=== PATIENT | male | born 1945 | race Caucasian/White ===

== ENCOUNTER 2019-01-29 14:22 | Emergency (ER) | payer MEDICARE, OTHER ==
[2019-01-29 14:32] VITALS: BP 123/78
--- NOTE | 2019-01-29 15:39 | ED Physician Documentation ---
History of Present Illness - Stated complaint Stated Complaint: BEE STINGS - Chief complaint Chief Complaint: General - History obtained from History obtained from: Patient - History of Present Illness Timing: Prior to arrival - Additonal information Additional information: Patient is a 73-year-old male presenting with multiple bee stings that occurred several hours ago in his yard. Patient denies known allergy to bees. Patient denies any lip or mouth swelling, throat closing sensation, difficulty breathing. Patient reports he did have some redness, swelling, and hives areas of stings which have all improved. No itchiness. No other improving or worsening factors noted. Review of Systems Skin: reports: Lesions, Bite / sting Musculoskeletal: denies: Extremity pain Neurologic: denies: Focal weakness, Numbness PD PAST MEDICAL HISTORY - Past Medical History Past Medical History: Yes Cardiovascular: Hypertension Respiratory: Sleep apnea Endocrine/Autoimmune: None GI: None : None HEENT: None Psych: None Derm: None - Past Surgical History Past Surgical History: No General: Colonoscopy - Present Medications Home Medications: Ambulatory Orders Medication Instructions Recorded Confirmed Chlorthalidone 0 mg PO DAILY 06/11/13 01/08/16 Finasteride [Proscar] 1.5 mg PO DAILY 06/11/13 01/08/16 Aspirin [Adult Low Dose Aspirin EC] 81 mg PO DAILY 01/07/16 01/08/16 - Allergies Allergies/Adverse Reactions: Allergies Allergy/AdvReac Type Severity Reaction Status Date / Time fenethylline [Fenethylline] Allergy hive Verified 06/11/13 10:01 oxytetracycline Allergy Hives Verified 06/11/13 10:01 [From Terramycin] oxytetracycline HCl * Allergy Hives Verified 06/11/13 10:01 [From Terramycin] Penicillins Allergy Hives Verified 06/11/13 10:01 Sulfa (Sulfonamide Allergy Hives Verified 06/11/13 10:01 Antibiotics) - Social History Does the pt smoke?: No Smoking Status: Never smoker Does the pt drink ETOH?: Yes Does the pt have substance abuse?: No PD ED PE NORMAL - Vitals Vital signs reviewed: Yes - General General: Alert and oriented X 3, No acute distress, Well developed/nourished - HEENT HEENT: Atraumatic, Moist mucous membranes, Pharynx benign, Other (No lip or intraoral swelling noted) - Neck Neck: Supple, no meningeal sign - Cardiac Cardiac: Strong equal pulses - Respiratory Respiratory: No respiratory distress - Derm Derm: Other (Small area of erythema, swelling, and 5 to right ventral forearm and left neck at sites of bee sting without other complication noted) - Extremities Extremities: No deformity, No tenderness to palpate, No edema - Neuro Neuro: Alert and oriented X 3, No motor deficit, No sensory deficit - Psych Psych: Normal mood, Normal affect Results - Vitals Vitals: Vital Signs - 24 hr 01/29/19 14:30 Temperature 36.6 C Heart Rate 101 H Respiratory 16 Rate Blood Pressure 123/78 O2 Saturation 96 Oxygen O2 Source Room air PD MEDICAL DECISION MAKING - ED course Complexity details: considered differential, d/w patient ED course: Patient presenting with several localized bee stings. No allergic reaction, respiratory distress, or anaphylaxis. Feel that his symptoms are just reactionary to the sting itself. Feel these will dissipate with time and other supportive cares. Do not feel patient requires interventions at this time. Discussed appropriate supportive cares at home, return precautions, and follow- up with patient. Patient is amenable to discharge plan. Departure - Departure Disposition: 01 Home, Self Care Clinical Impression: Bee sting Qualifiers: Encounter type: initial encounter Injury intent: accidental or unintentional Qualified Code(s): T63.441A - Toxic effect of venom of bees, accidental (unintentional), initial encounter Instructions: ED Bite Insect Follow-Up: your,doctor [Other] - Within 3 Days Comments: Recommend supportive care such as elevation, ice application, ibuprofen/Tylenol as needed. If itching, also recommend Benadryl. Please follow-up with primary care physician in next 2 to 3 days and return to ED sooner if experience worsening symptoms or have other concerns.
== END 2019-01-29 15:54 | disposition home or self-care (01) ==
LOC: ED 14:22
DX: T63.441A Toxic effect of venom of bees, accidental (unintentional), initial encounter (principal); X58.XXXA Exposure to other specified factors, initial encounter; Y92.007 Garden or yard of unspecified non-institutional (private) residence as the place of occurrence of the external cause; I10 Essential (primary) hypertension; Z79.82 Long term (current) use of aspirin
CPT/HCPCS: 99282

== ENCOUNTER 2020-09-13 13:35 | Outpatient (CLI) | payer MEDICARE, OTHER ==
[2020-09-13 20:12] LABS: BILIRUBIN,URINE NEGATIVE (NEGATIVE); GLUCOSE, URINE (UA) NEGATIVE (NEGATIVE); KETONES,URINE (UA) NEGATIVE (NEGATIVE); LEUKOCYTE ESTERASE, URINE NEGATIVE (NEGATIVE); NITRITE,URINE NEGATIVE (NEGATIVE); OCCULT BLOOD,URINE NEGATIVE (NEGATIVE); PH,URINE 6.5 PH (5.0-7.5); PROTEIN,URINE NEGATIVE (NEGATIVE); UROBILINOGEN,URINE 0.2 (NORMAL) E.U./dL (NORMAL)
[2020-09-13 20:15] LABS: CLARITY,URINE CLEAR (CLEAR)
[2020-09-13 20:21] LABS: BACTERIA,URINE None Seen /HPF (None Seen); CASTS, URINE 3-5 Hyaline Casts /LPF; RBC,URINE None Seen /HPF (0-5); SQUAMOUS EPITHELIAL CELL,UR RARE Squamous (<= Few); WBC,URINE 0-3 /HPF (0-3)
[2020-09-13 20:27] LABS: ALBUMIN 4.9 g/dL (3.2-5.5); ALBUMIN/GLOBULIN RATIO 1.8 (1.0-2.2); BILIRUBIN,TOTAL 0.5 mg/dL (0.2-1.0); CALCIUM 9.9 mg/dL (8.5-10.3); POTASSIUM 3.5 mmol/L (3.5-5.0); TOTAL PROTEIN 7.6 g/dL (6.7-8.2)
--- OUTSIDE RECORDS SUMMARY | 2020-09-24 19:59 | EXTERNAL MEDICAL SUMMARY RPT | Continuity of Care Document ---
:1945 Demographics Phone Unavailable Preferred Language Unknown Marital Status Unknown Mormonism Affiliation Unknown Race Unknown Ethnic Group Unknown Author Organization [facility] Address [address] [phone] Phone Care Team Providers Name Role Phone Joey, Provider Unavailable Unavailable Registrar, Chris Mckoy, Patient Unavailable Unavail able Problems date description facility [id number] Benign prostatic hyperplasia without lo wer urinary tract All symptoms 20200826 Benign prostatic hyperplasia All 20200826 COMPREHENSIVE METABOLIC PANEL All 20200826 Encounter for screening for malignant n eoplasm of prostate All 20200826 Hypertrophy (benign) of prostate withou t urinary obstruction All and other lower urinary tract (LUTS) 20200826 Nonspecific abnormal results of functio n study of kidney All 20200826 Screening for malignant neoplasm of pro state All 20200826 Screening for malignant neoplasms of pr ostate All 20200826 Urinalysis with Microscopic Exam, Cultu re in Indicated All 20200826 Alcohol intake All 20200826 Alcohol use All 20200826 Details of drug misuse behavior All 20200826 Exercise All 20200826 Feeling down, depressed, or hopeless? All 20200826 Health-related behavior All 20200826 How many standard drinks containing alc ohol do you have on a All typical day? [id number] How often do you have 6 or more drinks on 1 occasion? All 20200826 Little interest or pleasure in doing th ings? All [id number] Never smoker All 20200826 Other specified abnormal findings of bl ood chemistry All 20200826 PSA, SCREENING All 20200826 Patient Health Questionnaire 2 item (PH Q2) total score All 20200826 Serum creatinine raised All 20200826 Tobacco smoking status NHIS All [id number] Tobacco use and exposure All [id number] Total score? All Medications date description facility [id number] ATORVASTATIN CALCIUM All 20200826 [facility] All 20200826 LISIN[facility] All 20200826 [facility] All [id number] [facility] All [id number] [facility] All 20200826 LISINOPRIL All 20200826 ATORVASTATIN CALCIUM All [id number] ATORVASTATIN [facility] All [id number] [facility] All 20200826 LISINOPRIL All 20200826 [facility]ORTHALID[facility] All 20200826 [facility] All [id number] [facility] All [id number] LISINOPRIL All 20200826 ATORVASTATIN CALCIUM All Vital Signs date measurement value source 20200826 BMI 27.06 kg/m2 20200826 BP_diastolic 88 mm[Hg] 20200826 BP_diastolic 92 mm[Hg] 20200826 BP_systolic 149 mm[Hg] 20200826 BP_systolic 151 mm[Hg] 20200826 heart_rate 108 /min 20200826 height_metric 184.78 cm 20200826 height_standard 72.75 in 20200826 respiration_rate 16 /min 20200826 temperature_metric 36.17 C 20200826 temperature_standard 97.1 F 20200826 weight_metric 92.08 kg 20200826 weight_standard 203 lb Social History date description facility [id number]
== END 2020-09-13 13:36 | disposition home or self-care (01) ==
LOC: LAB.S 13:35
PROVIDERS: ATTEND Internal Medicine
DX: R79.89 Other specified abnormal findings of blood chemistry (principal); N40.0 Benign prostatic hyperplasia without lower urinary tract symptoms; Z12.5 Encounter for screening for malignant neoplasm of prostate
CPT/HCPCS: 36415; 80053; 81001; G0103; 84153; 87086

== ENCOUNTER 2021-02-10 16:43 | Emergency (ER) | payer MEDICARE, OTHER ==
[2021-02-10] MEDS ORDERED: diltiaZEM INJ 5 MG/ML VIAL IVP STA ×2 (17:16→18:03)
--- NOTE | 2021-02-10 17:18 | ED Physician Documentation ---
PD HPI CHEST PAIN - Stated complaint Stated Complaint: RAPID HR - Chief complaint Chief Complaint: Cardiac - History obtained from History obtained from: Patient - Additional information Additional information: Generally healthy 75-year-old gentleman developed rapid irregular palpitations about an hour ago while at rest. There is no associated chest pain, lightheadedness or trouble breathing. He has had similar fleeting episodes before prior work-up. Review of Systems Ten Systems: 10 systems reviewed and negative Constitutional: denies: Fever, Chills, Fatigue Cardiac: reports: Palpitations. denies: Chest pain / pressure Respiratory: denies: Dyspnea, Cough PD PAST MEDICAL HISTORY - Past Medical History Cardiovascular: Hypertension Respiratory: Sleep apnea Endocrine/Autoimmune: None GI: None : None HEENT: None Psych: None Derm: None - Past Surgical History Past Surgical History: No General: Colonoscopy - Present Medications Home Medications: Ambulatory Orders Medication Instructions Recorded Confirmed Chlorthalidone 1 tab PO DAILY 06/11/13 02/10/21 Finasteride [Proscar] 1.5 mg PO DAILY 06/11/13 01/08/16 Aspirin [Adult Low Dose Aspirin EC] 81 mg PO DAILY 01/07/16 02/10/21 Atorvastatin Calcium 1 tab PO DAILY 02/10/21 02/10/21 Lisinopril [Zestril] 1 tab PO DAILY 02/10/21 02/10/21 Metoprolol Tartrate [Lopressor] 25 mg PO Q6H PRN #30 tablet 02/10/21 - Allergies Allergies/Adverse Reactions: Allergies Allergy/AdvReac Type Severity Reaction Status Date / Time fenethylline [Fenethylline] Allergy hive Verified 02/10/21 17:04 oxytetracycline Allergy Hives Verified 02/10/21 17:04 [From Terramycin] oxytetracycline HCl * Allergy Hives Verified 02/10/21 17:04 [From Terramycin] Penicillins Allergy Hives Verified 02/10/21 17:04 Sulfa (Sulfonamide Allergy Hives Verified 02/10/21 17:04 Antibiotics) - Social History Does the pt smoke?: No Smoking Status: Never smoker Does the pt drink ETOH?: Yes Does the pt have substance abuse?: No PD ED PE NORMAL - Vitals Vital signs reviewed: Yes - General General: Alert and oriented X 3, No acute distress - HEENT HEENT: PERRL, EOMI - Neck Neck: Supple, no meningeal sign, No bony TTP - Cardiac Cardiac: Other (Rapid, generally regular but with some PACs on the monitors) - Respiratory Respiratory: No respiratory distress, Clear bilaterally - Abdomen Abdomen: Non tender - Derm Derm: Normal color, Warm and dry - Extremities Extremities: No edema, No calf tenderness / cord - Neuro Neuro: Alert and oriented X 3, Normal speech Results - Vitals Vitals: Vital Signs - 24 hr 02/10/21 02/10/21 02/10/21 16:48 17:07 17:39 Temperature 36.3 C L Heart Rate 134 H 124 H 121 H Respiratory 16 18 10 L Rate Blood Pressure 166/97 H 162/94 H 154/80 H O2 Saturation 98 97 02/10/21 02/10/21 02/10/21 18:11 18:24 18:45 Temperature Heart Rate 123 H 115 H 119 H Respiratory 9 L 13 13 Rate Blood Pressure 171/96 H 171/96 H 166/93 H O2 Saturation 96 95 96 02/10/21 19:00 Temperature Heart Rate 122 H Respiratory 13 Rate Blood Pressure 161/95 H O2 Saturation 100 Oxygen O2 Source Room air - EKG (time done) 1650 Rate: Rate (enter#) (122) Rhythm: Other (He is tachycardic, there is some irregularity. The computer reads it is sinus tach, it is a little hard to tell.) QRS: Normal Ischemia: Non specific changes 1915 Rate: Rate (enter#) (95) Rhythm: NSR [place]: Normal Intervals: Prolonged [place] QRS: Normal Ischemia: Normal ST segments - Labs Labs: Laboratory Tests 02/10/21 02/10/21 02/10/21 16:57 16:57 16:57 WBC 8.3 RBC 5.05 Hgb 15.3 Hct 44.9 MCV 88.9 MCH 30.3 MCHC 34.1 RDW 13.7 Plt Count 175 MPV 9.7 Neut # (Auto) 5.7 Lymph # (Auto) 1.9 [place] # (Auto) 0.6 Eos # (Auto) 0.1 Baso # (Auto) 0.1 Absolute Nucleated RBC 0.00 Nucleated RBC % 0.0 Sodium 140 Potassium 3.1 L Chloride 101 Carbon Dioxide 25 Anion Gap 14.0 H BUN 21 H Creatinine 1.1 Estimated GFR (MDRD) 65 L Glucose 131 H Calcium 9.7 Total Bilirubin 0.6 AST 31 ALT 53 Alkaline Phosphatase 60 Troponin I High Sens 8.4 Total Protein 7.6 Albumin 4.7 Globulin 2.9 Albumin/Globulin Ratio 1.6 Lipase 40 TSH 02/10/21 16:57 WBC RBC Hgb Hct MCV MCH MCHC RDW Plt Count MPV Neut # (Auto) Lymph # (Auto) [place] # (Auto) Eos # (Auto) Baso # (Auto) Absolute Nucleated RBC Nucleated RBC % Sodium Potassium Chloride Carbon Dioxide Anion Gap BUN Creatinine Estimated GFR (MDRD) Glucose Calcium Total Bilirubin AST ALT Alkaline Phosphatase Troponin I High Sens Total Protein Albumin Globulin Albumin/Globulin Ratio Lipase TSH 2.95 PD MEDICAL DECISION MAKING - ED course ED course: 75-year-old gentleman presents in a hard to discern discern SVT. 2 small doses of diltiazem were given without conversion. He was given some IV potassium noting that his potassium levels 3.1. After a small dose of metoprolol IV converted to normal sinus rhythm and was asymptomatic. No evidence of ischemic heart disease. We discussed triggers for this, he does not eat much in the way of fruits and vegetables so has a generally low potassium diet and a very high caffeine diet drinking copious amounts of coffee. We discussed this both decreasing caffeine and increasing whole grains and fruits and vegetables. Departure - Departure Disposition: 01 Home, Self Care Clinical Impression: SVT (supraventricular tachycardia) Condition: Good Record reviewed to determine appropriate education?: Yes Instructions: ED Tachycardia Pat PSVT Follow-Up: Lg De Guzman MD [Primary Care Provider] - Prescriptions: Metoprolol Tartrate [Lopressor] 25 mg PO Q6H PRN #30 tablet PRN Reason: Tachycardia Comments: You are found today to be in a supraventricular tachycardia. This is generally fairly benign. You converted with metoprolol which I am giving you a prescription for a low-dose for should you have it as symptomatic at home. That said I doubt you will have this again if you improve your diet to eat more whole grains and fruits and vegetables and decrease caffeine consumption. Regardless you should follow-up with your primary care physician. Return for new or worsening symptoms. Discharge Date/Time: 02/10/21 19:42
[2021-02-10 17:29] LABS: BASOPHILS # (AUTO) 0.1 10^3/uL (0.0-0.1); BASOPHILS % (AUTO) 0.7 %; EOSINOPHILS # (AUTO) 0.1 10^3/uL (0.0-0.7); EOSINOPHILS % (AUTO) 1.6 %; HCT - HEMATOCRIT 44.9 % (42.0-52.0); HGB - HEMOGLOBIN 15.3 g/dL (14.0-18.0); LYMPHOCYTES # (AUTO) 1.9 10^3/uL (1.5-3.5); LYMPHOCYTES % (AUTO) 22.2 %; MEAN CORPUSCULAR HEMOGLOBIN 30.3 pg (27.0-31.0); MEAN CORPUSCULAR HGB CONC 34.1 g/dL (32.0-36.0); MEAN CORPUSCULAR VOLUME 88.9 fL (80.0-94.0); MEAN PLATELET VOLUME 9.7 fL (7.4-11.4); MONOCYTES # (AUTO) 0.6 10^3/uL (0.0-1.0); MONOCYTES % (AUTO) 6.6 %; NEUTROPHILS # (AUTO) 5.7 10^3/uL (1.5-6.6); NEUTROPHILS % (AUTO) 68.4 %; PLT - PLATELET COUNT 175 10^3/uL (130-450); RED BLOOD COUNT 5.05 10^6/uL (4.70-6.10); RED CELL DISTRIBUTION WIDTH 13.7 % (12.0-15.0); WHITE BLOOD COUNT 8.3 x10^3/uL (4.8-10.8)
[2021-02-10 17:44] LABS: ALBUMIN 4.7 g/dL (3.2-5.5); ALBUMIN/GLOBULIN RATIO 1.6 (1.0-2.2); BILIRUBIN,TOTAL 0.6 mg/dL (0.2-1.0); CALCIUM 9.7 mg/dL (8.5-10.3); CREATININE 1.1 mg/dL (0.6-1.2); POTASSIUM 3.1 mmol/L (3.5-5.0); TOTAL PROTEIN 7.6 g/dL (6.7-8.2)
[2021-02-10] MEDS ORDERED: SODIUM CHLORIDE 0.9% 1,000 ML IV STA (18:03)
[2021-02-10] MEDS ORDERED: POTASSIUM CHLOR 10 MEQ/100 ML 10 MEQ/100 ML BAG IV STA (18:03)
--- NOTE | 2021-02-10 18:26 | XRAY Report ---
PROCEDURE: Chest 1 View X-Ray INDICATIONS: Chest pain TECHNIQUE: One view of the chest was acquired. COMPARISON: None FINDINGS: Surgical changes and devices: None. Lungs and pleura: No pleural effusions or pneumothorax. No focal infiltrate tip. 4 mm nodule noted i n the periphery the right upper lobe as well as additional 5 mm nodule noted at the right lung base. Mediastinum: Mediastinal contours appear normal. Heart size is normal. Bones and chest wall: No suspicious bony lesions. Overlying soft tissues appear unremarkable. IMPRESSION: No acute infiltrate or pleural effusion Small right upper lobe and right basilar pulmonary nodule measuring less than 5 mm. Consider 6 month follow-up to assess stability Reviewed by: Rakesh Chacon MD on 02/10/2021 5:24 PM AKDINA Approved by: Rakesh Chacon MD on 02/10/2021 5:24 PM AKDT Station ID: [id number]
[2021-02-10] MEDS ORDERED: METOPROLOL 5 MG/5 ML VIAL IVP STA (18:48)
[2021-02-10 19:09] VITALS: BP 161/95
== END 2021-02-10 19:42 | disposition home or self-care (01) ==
LOC: ED 16:43
DX: I47.1 Supraventricular tachycardia (principal)
CPT/HCPCS: 36415; 80053; 83690; 84443; 84484; 85025; 93005; 96361; 96374; 96375; 96376; 99283

== ENCOUNTER 2021-02-23 12:13 | Emergency (ER) | payer MEDICARE, OTHER ==
[2021-02-23 12:32] VITALS: BP 142/86
--- NOTE | 2021-02-23 12:56 | ED Physician Documentation ---
History of Present Illness - Stated complaint Stated Complaint: ANXIETY/HEART PALP - Chief complaint Chief Complaint: Cardiac - History obtained from History obtained from: Patient - History of Present Illness Timing: Today Pain level max: 0 Pain level now: 0 - Additonal information Additional information: Patient is a 75-year-old male who presents to the emergency department with an episode of palpitations earlier today. Lasted about 5 minutes. Resolved with taking his as needed metoprolol. Currently asymptomatic. He states that this has been happening almost daily for the past several weeks. It always resolves with taking the as needed metoprolol he was previously prescribed. Has not yet followed up with his doctor. Has an appointment in 2 weeks. Nothing makes it better or worse. No chest pain. No shortness of breath. No headache. No lightheadedness or dizziness. Review of Systems Ten Systems: 10 systems reviewed and negative Constitutional: denies: Fever, Chills Nose: denies: Rhinorrhea / runny nose, Congestion Throat: denies: Sore throat Cardiac: reports: Palpitations (sometimes 1-2 seconds, sometimes a few minutes). denies: Chest pain / pressure Respiratory: denies: Dyspnea, Cough, Hemoptysis, Wheezing GI: denies: Abdominal Pain, Vomiting, Diarrhea Skin: denies: Rash Musculoskeletal: denies: Neck pain, Back pain Neurologic: denies: Headache PD PAST MEDICAL HISTORY - Past Medical History Cardiovascular: Hypertension Respiratory: Sleep apnea Endocrine/Autoimmune: None GI: None : None HEENT: None Psych: None Derm: None - Past Surgical History Past Surgical History: No General: Colonoscopy - Present Medications Home Medications: Ambulatory Orders Medication Instructions Recorded Confirmed Chlorthalidone 1 tab PO DAILY 06/11/13 02/10/21 Finasteride [Proscar] 1.5 mg PO DAILY 06/11/13 01/08/16 Aspirin [Adult Low Dose Aspirin EC] 81 mg PO DAILY 01/07/16 02/10/21 Atorvastatin Calcium 1 tab PO DAILY 02/10/21 02/10/21 Lisinopril [Zestril] 1 tab PO DAILY 02/10/21 02/10/21 Metoprolol Tartrate [Lopressor] 25 mg PO Q6H PRN #30 tablet 02/10/21 Metoprolol Succinate [Toprol Xl] 25 mg PO DAILY #30 tablet 02/23/21 - Allergies Allergies/Adverse Reactions: Allergies Allergy/AdvReac Type Severity Reaction Status Date / Time fenethylline [Fenethylline] Allergy hive Verified 02/23/21 12:33 oxytetracycline Allergy Hives Verified 02/23/21 12:33 [From Terramycin] oxytetracycline HCl * Allergy Hives Verified 02/23/21 12:33 [From Terramycin] Penicillins Allergy Hives Verified 02/23/21 12:33 Sulfa (Sulfonamide Allergy Hives Verified 02/23/21 12:33 Antibiotics) - Social History Does the pt smoke?: No Smoking Status: Never smoker Does the pt drink ETOH?: Yes Does the pt have substance abuse?: No PD ED PE NORMAL - Vitals Vital signs reviewed: Yes - General General: Alert and oriented X 3, No acute distress, Well developed/nourished - HEENT HEENT: PERRL, Moist mucous membranes - Neck Neck: Supple, no meningeal sign - Cardiac Cardiac: RRR, No murmur, Strong equal pulses - Respiratory Respiratory: No respiratory distress, Clear bilaterally - Abdomen Abdomen: Soft, Non tender, Non distended - Derm Derm: Warm and dry - Extremities Extremities: No edema, No calf tenderness / cord - Neuro Neuro: Alert and oriented X 3 - Psych Psych: Normal mood, Normal affect Results - Vitals Vitals: Vital Signs - 24 hr 02/23/21 12:27 Temperature 36.6 C Heart Rate 88 Respiratory 16 Rate Blood Pressure 142/86 H O2 Saturation 98 Oxygen O2 Source Room air - EKG (time done) 1223 Rate: Rate (enter#) (84) Rhythm: NSR [place]: Normal Intervals: Normal [place] QRS: Normal Ischemia: Other (borderline ST elevation) PD MEDICAL DECISION MAKING - ED course Complexity details: reviewed results, considered differential, d/w patient ED course: No acute findings on EKG. Asymptomatic here. We will place him on Toprol-XL 25 mg p.o. daily to see if this helps the daily palpitations. He will follow up with his doctor for a Holter monitor. He is also to decrease his caffeine intake. Patient states that his whole life his heart rate has been in the 80s and 90s. No arrhythmias on telemetry here. He is in sinus rhythm. Patient counseled regarding signs and symptoms for which I believe and urgent re- evaluation would be necessary. Patient with good understanding of and agreement to plan and is comfortable going home at this time This document was made in part using voice recognition software. While efforts are made to proofread this document, sound alike and grammatical errors may occur. Departure - Departure Disposition: 01 Home, Self Care Clinical Impression: Palpitations Condition: Good Instructions: ED Palpitations Follow-Up: Lg De Guzman MD [Primary Care Provider] - Within 1 week Prescriptions: Metoprolol Succinate [Toprol Xl] 25 mg PO DAILY #30 tablet Comments: We will start you on a daily metoprolol dose. This is a longer acting metoprolol than the one you are previously prescribed. Please follow-up with your doctor for a ekg monitor to evaluate your heart palpitations. Your prescription was sent to [facility] in [place]. Discharge Date/Time: 02/23/21 13:22
== END 2021-02-23 13:22 | disposition home or self-care (01) ==
LOC: ED 12:13
DX: R00.2 Palpitations (principal); I10 Essential (primary) hypertension; Z79.82 Long term (current) use of aspirin
CPT/HCPCS: 93005; 99283

== ENCOUNTER 2021-02-27 12:49 | Outpatient (CLI) | payer MEDICARE, OTHER ==
[2021-02-27 15:29] LABS: ALBUMIN 4.4 g/dL (3.2-5.5); ALBUMIN/GLOBULIN RATIO 1.7 (1.0-2.2); BILIRUBIN,TOTAL 0.8 mg/dL (0.2-1.0); CALCIUM 9.3 mg/dL (8.5-10.3); POTASSIUM 3.7 mmol/L (3.5-5.0)
== END 2021-02-27 12:50 | disposition home or self-care (01) ==
LOC: LAB.S 12:49
PROVIDERS: ATTEND Internal Medicine
DX: I10 Essential (primary) hypertension (principal); N40.0 Benign prostatic hyperplasia without lower urinary tract symptoms
CPT/HCPCS: 36415; 80053; 81001; 87086

== ENCOUNTER 2021-02-28 08:00 | Outpatient (CLI) | payer MEDICARE, OTHER ==
[2021-02-28 15:13] LABS: BILIRUBIN,URINE NEGATIVE (NEGATIVE); GLUCOSE, URINE (UA) NEGATIVE (NEGATIVE); KETONES,URINE (UA) NEGATIVE (NEGATIVE); LEUKOCYTE ESTERASE, URINE NEGATIVE (NEGATIVE); NITRITE,URINE NEGATIVE (NEGATIVE); OCCULT BLOOD,URINE NEGATIVE (NEGATIVE); PH,URINE 6.5 PH (5.0-7.5); PROTEIN,URINE NEGATIVE (NEGATIVE); UROBILINOGEN,URINE 0.2 (NORMAL) E.U./dL (NORMAL)
[2021-02-28 15:33] LABS: CLARITY,URINE CLEAR (CLEAR)
[2021-02-28 15:34] LABS: BACTERIA,URINE None Seen /HPF (None Seen); RBC,URINE None Seen /HPF (0-5); SQUAMOUS EPITHELIAL CELL,UR NONE SEEN (<= Few); WBC,URINE 0-3 /HPF (0-3)
== END 2021-02-28 23:59 | disposition home or self-care (01) ==
LOC: LAB.S 08:00
PROVIDERS: ATTEND Internal Medicine
DX: I10 Essential (primary) hypertension (principal); N40.0 Benign prostatic hyperplasia without lower urinary tract symptoms
CPT/HCPCS: 81001; 87086

== ENCOUNTER 2021-05-23 12:18 | Outpatient (CLI) | payer MEDICARE, OTHER ==
[2021-05-23 15:52] LABS: CHOL/HDL RATIO 4.1 (<5.0); CHOLESTEROL 158 mg/dL; HDL CHOLESTEROL 39 mg/dL; LDL CHOLESTEROL,CALCULATED 91 mg/dL; LDL/HDL RATIO 2.3 (<3.6); TRIGLYCERIDES 142 mg/dL; VLDL CHOLESTEROL 28 mg/dL
[2021-05-23 15:52] LABS: ALBUMIN 4.6 g/dL (3.2-5.5); ALBUMIN/GLOBULIN RATIO 1.7 (1.0-2.2); BILIRUBIN,TOTAL 0.9 mg/dL (0.2-1.0); CALCIUM 9.3 mg/dL (8.5-10.3); POTASSIUM 3.6 mmol/L (3.5-5.0); TOTAL PROTEIN 7.3 g/dL (6.7-8.2)
== END 2021-05-23 12:19 | disposition home or self-care (01) ==
LOC: LAB.S 12:18
PROVIDERS: ATTEND Registered Nurse
DX: E78.5 Hyperlipidemia, unspecified (principal); I70.90 Unspecified atherosclerosis; I70.1 Atherosclerosis of renal artery; E87.6 Hypokalemia
CPT/HCPCS: 36415; 80053; 80061; 83721; 83735

== ENCOUNTER 2021-11-11 11:25 | Emergency (ER) | payer MEDICARE, OTHER | END 2021-11-11 11:55 | disposition left against medical advice (07) | LOC: ED 11:25 | DX: Z53.21 Procedure and treatment not carried out due to patient leaving prior to being seen by health care provider (principal) ==

== ENCOUNTER 2021-12-15 07:10 | Outpatient (CLI) | payer MEDICARE, OTHER ==
[2021-12-15 14:41] LABS: BASOPHILS # (AUTO) 0.1 10^3/uL (0.0-0.1); BASOPHILS % (AUTO) 0.8 %; EOSINOPHILS # (AUTO) 0.2 10^3/uL (0.0-0.7); EOSINOPHILS % (AUTO) 2.4 %; HCT - HEMATOCRIT 44.6 % (42.0-52.0); HGB - HEMOGLOBIN 14.6 g/dL (14.0-18.0); LYMPHOCYTES # (AUTO) 1.5 10^3/uL (1.5-3.5); LYMPHOCYTES % (AUTO) 22.3 %; MEAN CORPUSCULAR HEMOGLOBIN 30.1 pg (27.0-31.0); MEAN CORPUSCULAR HGB CONC 32.7 g/dL (32.0-36.0); MEAN PLATELET VOLUME 10.1 fL (7.4-11.4); MONOCYTES # (AUTO) 0.5 10^3/uL (0.0-1.0); MONOCYTES % (AUTO) 6.8 %; NEUTROPHILS # (AUTO) 4.5 10^3/uL (1.5-6.6); NEUTROPHILS % (AUTO) 67.4 %; PLT - PLATELET COUNT 180 10^3/uL (130-450); RED BLOOD COUNT 4.85 10^6/uL (4.70-6.10); RED CELL DISTRIBUTION WIDTH 13.8 % (12.0-15.0); WHITE BLOOD COUNT 6.7 x10^3/uL (4.8-10.8)
[2021-12-15 15:12] LABS: ALBUMIN 4.5 g/dL (3.2-5.5); ALBUMIN/GLOBULIN RATIO 1.9 (1.0-2.2); ALKALINE PHOSPHATASE 53 IU/L (42-121); ALT ALANINE AMINOTRANSFERASE 34 IU/L (10-60); AST ASPARTATE AMINOTRANSFERASE 25 IU/L (10-42); BILIRUBIN,TOTAL 0.7 mg/dL (0.2-1.0); BUN - BLOOD UREA NITROGEN 22 mg/dL (6-20); CARBON DIOXIDE - CO2 25 mmol/L (21-32); CHLORIDE 101 mmol/L (101-111); CHOL/HDL RATIO 3.1 (<5.0); CHOLESTEROL 142 mg/dL; CREATININE 1.2 mg/dL (0.6-1.2); GFR - MDRD 59 (>89); GLUCOSE 107 mg/dL (70-100); HDL CHOLESTEROL 46 mg/dL; LDL CHOLESTEROL,CALCULATED 74 mg/dL; LDL/HDL RATIO 1.6 (<3.6); POTASSIUM 4.2 mmol/L (3.5-5.0); SODIUM 137 mmol/L (135-145); TOTAL PROTEIN 6.9 g/dL (6.7-8.2); TRIGLYCERIDES 109 mg/dL; VLDL CHOLESTEROL 22 mg/dL
== END 2021-12-15 07:11 | disposition home or self-care (01) ==
LOC: LAB.S 07:10
PROVIDERS: ATTEND Registered Nurse
DX: I10 Essential (primary) hypertension (principal); Z13.220 Encounter for screening for lipoid disorders; Z12.5 Encounter for screening for malignant neoplasm of prostate
CPT/HCPCS: 36415; 80053; 80061; 85025; G0103; 83721; 84153

== ENCOUNTER 2022-07-22 13:07 | Outpatient (CLI) | payer MEDICARE, OTHER | END 2022-07-22 13:08 | disposition home or self-care (01) | LOC: LAB.S 13:07 | PROVIDERS: ATTEND Podiatrist | DX: M10.9 Gout, unspecified (principal) | CPT/HCPCS: 36415; 84550 ==

== ENCOUNTER 2022-08-06 13:08 | Outpatient (CLI) | payer MEDICARE, OTHER ==
[2022-08-06 20:09] LABS: CALCIUM 9.6 mg/dL (8.5-10.3); CREATININE 0.9 mg/dL (0.6-1.2); POTASSIUM 3.8 mmol/L (3.5-5.0)
== END 2022-08-06 13:09 | disposition home or self-care (01) ==
LOC: LAB.S 13:08
PROVIDERS: ATTEND Internal Medicine Cardiovascular Disease
DX: I10 Essential (primary) hypertension (principal); E78.5 Hyperlipidemia, unspecified; R00.2 Palpitations
CPT/HCPCS: 36415; 80048

== ENCOUNTER 2022-08-25 14:32 | Outpatient (CLI) | payer MEDICARE, OTHER | END 2022-08-25 14:33 | disposition home or self-care (01) | LOC: LAB.S 14:32 | PROVIDERS: ATTEND Podiatrist | DX: M10.9 Gout, unspecified (principal) | CPT/HCPCS: 36415; 84550 ==

== ENCOUNTER 2022-09-23 12:51 | Outpatient (CLI) | payer MEDICARE, OTHER | END 2022-09-23 12:52 | disposition home or self-care (01) | LOC: LAB.S 12:51 | PROVIDERS: ATTEND Podiatrist | DX: M10.9 Gout, unspecified (principal) | CPT/HCPCS: 36415; 84550 ==

== ENCOUNTER 2023-04-01 13:53 | Outpatient (CLI) | payer MEDICARE, OTHER | END 2023-04-01 13:54 | disposition home or self-care (01) | LOC: LAB.S 13:53 | PROVIDERS: ATTEND Podiatrist | DX: M10.9 Gout, unspecified (principal) | CPT/HCPCS: 36415; 84550 ==

== ENCOUNTER 2023-08-10 11:44 | Outpatient (CLI) | payer MEDICARE, OTHER ==
[2023-08-10 14:32] LABS: BASOPHILS # (AUTO) 0.1 10^3/uL (0.0-0.1); BASOPHILS % (AUTO) 0.8 %; EOSINOPHILS # (AUTO) 0.1 10^3/uL (0.0-0.7); EOSINOPHILS % (AUTO) 1.5 %; HCT - HEMATOCRIT 45.6 % (42.0-52.0); LYMPHOCYTES # (AUTO) 1.1 10^3/uL (1.5-3.5); LYMPHOCYTES % (AUTO) 16.6 %; MEAN CORPUSCULAR HEMOGLOBIN 29.1 pg (27.0-31.0); MEAN CORPUSCULAR HGB CONC 32.9 g/dL (32.0-36.0); MEAN CORPUSCULAR VOLUME 88.4 fL (80.0-94.0); MEAN PLATELET VOLUME 9.7 fL (7.4-11.4); MONOCYTES # (AUTO) 0.5 10^3/uL (0.0-1.0); MONOCYTES % (AUTO) 7.6 %; NEUTROPHILS # (AUTO) 4.8 10^3/uL (1.5-6.6); NEUTROPHILS % (AUTO) 73.2 %; PLT - PLATELET COUNT 165 10^3/uL (130-450); RED BLOOD COUNT 5.16 10^6/uL (4.70-6.10); RED CELL DISTRIBUTION WIDTH 14.3 % (12.0-15.0); WHITE BLOOD COUNT 6.6 x10^3/uL (4.8-10.8)
[2023-08-10 14:55] LABS: ALBUMIN 4.7 g/dL (3.2-5.5); BILIRUBIN,TOTAL 0.7 mg/dL (0.2-1.0); CALCIUM 9.6 mg/dL (8.5-10.3); POTASSIUM 4.1 mmol/L (3.5-4.5); TOTAL PROTEIN 7.1 g/dL (6.4-8.9)
[2023-08-10 14:57] LABS: THYROID STIMULATING HORMONE 2.27 uIU/mL (0.34-5.60)
== END 2023-08-10 11:45 | disposition home or self-care (01) ==
LOC: LAB.S 11:44
PROVIDERS: ATTEND Physician Assistant Medical
DX: I10 Essential (primary) hypertension (principal)
CPT/HCPCS: 36415; 80053; 84443; 85025

== ENCOUNTER 2023-10-06 07:14 | Outpatient (CLI) | payer MEDICARE, OTHER ==
[2023-10-06 15:03] LABS: CHOL/HDL RATIO 3.1 (<5.0); CHOLESTEROL 138 mg/dL; HDL CHOLESTEROL 45 mg/dL; LDL CHOLESTEROL,CALCULATED 62 mg/dL; LDL/HDL RATIO 1.4 (<3.6); TRIGLYCERIDES 154 mg/dL (48-352); VLDL CHOLESTEROL 31 mg/dL
== END 2023-10-06 07:15 | disposition home or self-care (01) ==
LOC: LAB.S 07:14
PROVIDERS: ATTEND Internal Medicine Cardiovascular Disease
DX: E78.5 Hyperlipidemia, unspecified (principal)
CPT/HCPCS: 36415; 80061; 83721